=== PATIENT | female | born 1950 | race Caucasian/White ===

== ENCOUNTER 2018-07-17 12:49 | Emergency (ER) | payer MEDICARE, OTHER ==
[2018-07-17] MEDS ORDERED: Ketorolac Tromethamine 30 MG/ML VIAL ONE (13:05)
--- NOTE | 2018-07-17 13:51 | RAD ---
AP PELVIS RADIOGRAPH: DATE: 07/17/2018. HISTORY: Fall 1 week ago, trauma. Pain since fall to sacral area now intermittently radiating down both lower extremities. FINDINGS: No fracture or dislocation is seen on this AP projection of the pelvis. No dislocation is seen. Phl eboliths overlie the pelvis. No other findings. IMPRESSION: No acute fracture visualized. POS: ALLYSSA
--- NOTE | 2018-07-17 13:52 | RAD ---
THREE VIEWS OF THE SACRUM AND COCCYX: DATE: 07/17/2018. HISTORY: Trauma. The patient reports a fall 1 week ago and landing on buttocks. FINDINGS: No fracture is seen involving the sacrum or coccyx. Mild degenerative changes are seen at the lumbos acral junction. Sacroiliac joints are symmetric in appearance bilaterally. Phleboliths overlie the pelvis. IMPRESSION: No acute fracture visualized. POS: ALLYSSA
== END 2018-07-17 13:27 | disposition home or self-care (01) ==
LOC: SCSER 12:49
DX: S32.2XXA Fracture of coccyx, initial encounter for closed fracture (principal); E03.9 Hypothyroidism, unspecified; F41.9 Anxiety disorder, unspecified; F17.210 Nicotine dependence, cigarettes, uncomplicated; Z79.899 Other long term (current) drug therapy; W18.30XA Fall on same level, unspecified, initial encounter
CPT/HCPCS: 72170; 72220; 96372; J1885

== ENCOUNTER 2019-05-11 12:58 | Outpatient (CLI) | payer MEDICARE, OTHER ==
--- NOTE | 2019-05-11 13:32 | RAD ---
CHEST TWO VIEWS: INDICATIONS: Wheezing. COMPARISON: None available. FINDINGS: No lobar consolidation, effusion or pneumothorax. The cardiomediastinal silhouette is mildly enlarged . Operative hardware is partially visualized at the cervical spine. Gastric banding is seen at the le ft upper quadrant. IMPRESSION: 1. No focal consolidation. 2. Mild enlargement of the cardiomediastinal silhouette. POS: C
== END 2019-05-11 12:59 | disposition home or self-care (01) ==
LOC: SCSRAD 12:58
PROVIDERS: ATTEND Nurse Practitioner Family
DX: R06.2 Wheezing (principal); I51.7 Cardiomegaly
CPT/HCPCS: 71046

== ENCOUNTER 2019-08-24 10:03 | Day surgery (SDC) | payer MEDICARE, OTHER ==
[2019-08-24] MEDS ORDERED: Rocuronium Bromide 10 MG/ML (10ML VIAL) ONE (10:27)
[2019-08-24] MEDS ORDERED: PROPOFOL 200 MG/20 ML VIAL ONE (10:27)
[2019-08-24] MEDS ORDERED: Labetalol HCl 100 MG/20 ML VIAL ONE (10:27)
[2019-08-24] MEDS ORDERED: Lidocaine 1% PF 5 ML VIAL ONE (10:27)
[2019-08-24] MEDS ORDERED: Esmolol 100 MG/10 ML VIAL ONE (10:27)
[2019-08-24] MEDS ORDERED: Glycopyrrolate 0.2 MG/ML 5 ML SYRINGE ONE (10:27)
[2019-08-24] MEDS ORDERED: Fentanyl 100 MCG/2 ML VIAL ONE ×2 (10:45→13:03)
[2019-08-24] MEDS ORDERED: Midazolam HCl 2 mg/2 ml Vial ONE ×2 (10:45→11:25)
[2019-08-24] MEDS ORDERED: EPINEPHrine 1 MG/ML AMP ONE (10:52)
[2019-08-24] MEDS ORDERED: Bupivacaine 0.25% HCL 30 ML VIAL ONE (10:52)
[2019-08-24 11:15] LABS: #Basophils 0.1 thou/uL (0.0-0.2); #Eosinphils 0.3 thou/uL (0.0-0.7); #Lymphocytes 2.3 thou/uL (1.20-3.40); #Monocytes 0.9 thou/uL (0.11-0.59); #Neutrophils 7.6 thou/uL (1.40-6.50); %Basophils 0.8 % (0.0-1.0); %Eosinophils 2.3 % (0.0-10.0); %Lymphocytes 20.7 % (21.0-51.0); %Monocytes 7.7 % (0.0-10.0); %Neutrophils 68.5 % (42.0-75.0); Hemoglobin 15.9 g/dL (12.0-16.0); Mean Corpuscular HGB CONC 32.8 g/dL (32.0-36.0); Mean Corpuscular Hemoglobin 33.8 pg (27.0-31.0); Mean Platelet Volume 7.2 fL (7.4-10.4); Platelet Count 284 thou/uL (130-400); RBC Distribution Width 11.1 % (11.5-14.5); Red Blood Cell (RBC) Count 4.72 mill/uL (4.20-5.40); White Blood Cell (WBC) Count 11.1 thou/uL (4.8-10.8)
[2019-08-24 11:36] LABS: Anion Gap 13 mmol/L (10-20); BUN (Urea Nitrogen) 15 mg/dL (9.8-20.1); Calc. Creatinine Clearance 0 mL/min (70-130); Calcium 10.1 mg/dL (7.8-10.44); Carbon Dioxide 27 mmol/L (23-31); Chloride 101 mmol/L (98-107); Estimated GFR-MDRD 76; Glucose 87 mg/dL (83-110); Potassium 3.4 mmol/L (3.5-5.1); Sodium 138 mmol/L (136-145)
[2019-08-24] MEDS ORDERED: Ondansetron PF 4 MG/2 ML Vial ONE (12:56)
[2019-08-24] MEDS ORDERED: Hydrocodone-Acetamin 15 ML UDCUP ONE (14:02)
--- NOTE | 2019-08-26 16:52 | OP ---
DATE OF PROCEDURE: 08/24/2019 PREOPERATIVE DIAGNOSIS: Nausea, vomiting, and slipped lap band. PROCEDURE PERFORMED: Laparoscopic removal of lap band and port with wedge liver biopsy. INDICATIONS: A 69-year-old female had a lap band placed in [place]. She has been having severe nausea, vomiting, and dysphagia. An x-ray showed that the tubing was disconnected. FINDINGS: Lap band had slipped somewhat. The liver was very irregular, so a biopsy was performed. DESCRIPTION OF PROCEDURE: After informed consent was obtained, the patient was taken to the operating room, given general endotracheal anesthesia, placed in the supine position. Abdomen was prepped and draped in usual fashion. Local anesthesia was infiltrated subcutaneously and deep. A 5-mm incision was performed approximately 8-inch below the xiphoid slightly to the left. Veress needle was inserted. Drop test was performed. Pneumoperitoneum was created to a volume of 2 L of carbon dioxide. Utilizing a bladeless 5-mm trocar and 0-degree laparoscope, direct visual entry into the abdominal cavity was performed. Pneumoperitoneum was created to a pressure of 15 mmHg and the patient was placed in steep reverse Trendelenburg position. A Iftikhar liver retractor was inserted. Left lobe of the liver was retracted superiorly. A 12-mm port was placed at the port site in the midline and a 5-mm port placed further lateral on the left side. The tubing was grasped and divided, then traced down to the buckle. The buckle was dissected out using blunt and sharp dissection. The buckle was opened and the capsule incised. The band was pulled out from around the stomach and then removed from the abdomen through that subxiphoid port site. Hemostasis was achieved. The liver had this very cason irregular surface. A wedge biopsy was performed sharply with Metzenbaum scissors. This specimen was sent to Pathology for further analysis. Hemostasis was achieved with electrocautery, but there was still some ooze, so some Edmundo powder was also applied. Hemostasis was assured. The abdomen was irrigated, irrigation fluid removed. Trocars and retractors were removed. Skin incision was enlarged slightly to remove the port. Capsule was incised around the port. The port was dissected out. Hemostasis was assured. Subcu reapproximated with interrupted 3-0 Vicryl. Skin was closed with interrupted 4-0 Rapide. Dermabond applied. The patient tolerated the procedure well, transferred to Recovery in good condition. Sponge and needle count verified correct x2. Job ID: [id number]
== END 2019-08-24 14:40 | disposition home or self-care (01) ==
LOC: SDC 10:03
PROVIDERS: ATTEND Surgery
PROC: 0DP Gastrointestinal System, Removal (ICD-10-PCS; principal; 2019-08-24)
PROC: 0FB00ZX Excision of Liver, Open Approach, Diagnostic (ICD-10-PCS; 2019-08-24)
DX: K95.09 Other complications of gastric band procedure (principal); F17.210 Nicotine dependence, cigarettes, uncomplicated; Z79.890 Hormone replacement therapy; Z79.899 Other long term (current) drug therapy; Z88.5 Allergy status to narcotic agent
CPT/HCPCS: 36415; 80048; 85025; 88307; 88313; 93005; 93010; J0171; J0690; J2001; J2250; J2405; J2704; J3010; S0020

== ENCOUNTER 2022-10-11 10:53 | Outpatient (CLI) | payer MEDICARE, OTHER | END 2022-10-11 10:54 | disposition home or self-care (01) | LOC: BICMAMMO 10:53 | PROVIDERS: ATTEND Student in an Organized Health Care Education/Training Program | DX: Z12.31 Encounter for screening mammogram for malignant neoplasm of breast (principal) | CPT/HCPCS: 77063; 77067 ==

== ENCOUNTER 2023-05-20 09:50 | Outpatient (CLI) | payer MEDICARE, OTHER | END 2023-05-20 09:51 | disposition home or self-care (01) | LOC: RAD 09:50 | PROVIDERS: ATTEND Internal Medicine Critical Care Medicine | DX: R06.00 Dyspnea, unspecified (principal); R91.8 Other nonspecific abnormal finding of lung field | CPT/HCPCS: 71046 ==

== ENCOUNTER 2023-08-29 13:07 | Outpatient (CLI) | payer MEDICARE, OTHER | END 2023-08-29 13:08 | disposition home or self-care (01) | LOC: RAD 13:07 | PROVIDERS: ATTEND Internal Medicine Critical Care Medicine | DX: R06.00 Dyspnea, unspecified (principal); J18.1 Lobar pneumonia, unspecified organism | CPT/HCPCS: 71046 ==